=== PATIENT | female | born 1985 | race Two or more races ===

== ENCOUNTER → 2017-11-23 | Outpatient (CLI) | payer OTHER ==
[~2017-11-23] VITALS: Ht 152.4 cm; Wt 140.6 kg
[~2017-11-23] MED LIST: GLUCOPHAGE XR500 MG PO; METFORMIN HCL1000 MG; SYNTHROID150 MCG; SYNTHROID175 MCG PO
== END | disposition home or self-care (01) ==
LOC: PPHC 10:44
DX: M54.2 Cervicalgia (principal); Z76.0 Encounter for issue of repeat prescription

== ENCOUNTER 2018-09-06 10:44 | Outpatient (CLI) | payer OTHER | END 2018-09-06 10:50 | disposition home or self-care (01) | LOC: LAB 10:44 | DX: J06.9 Acute upper respiratory infection, unspecified (principal); J09.X2 Influenza due to identified novel influenza A virus with other respiratory manifestations; J11.1 Influenza due to unidentified influenza virus with other respiratory manifestations ==

== ENCOUNTER 2018-09-08 18:02 | Outpatient (CLI) | payer OTHER | END 2018-09-08 18:10 | disposition home or self-care (01) | LOC: LAB 18:02 | DX: J20.8 Acute bronchitis due to other specified organisms (principal) ==

== ENCOUNTER 2019-01-07 19:03 | Outpatient (CLI) | payer OTHER | END 2019-01-07 19:29 | disposition home or self-care (01) | LOC: RAD 19:03 | DX: J20.8 Acute bronchitis due to other specified organisms (principal) ==

== ENCOUNTER 2019-04-27 16:01 | Emergency (ER) | payer OTHER ==
[~2019-04-27] VITALS: Ht 170.2 cm; Wt 113.4 kg
== END 2019-04-27 18:17 | disposition home or self-care (01) ==
LOC: ER 16:01
DX: J06.9 Acute upper respiratory infection, unspecified (principal)

== ENCOUNTER 2019-08-21 11:43 | Outpatient (CLI) | payer OTHER | END 2019-08-21 11:51 | disposition home or self-care (01) | LOC: LAB 11:43 | DX: J11.1 Influenza due to unidentified influenza virus with other respiratory manifestations (principal) ==

== ENCOUNTER 2020-05-20 16:40 | Outpatient (CLI) | payer OTHER | END 2020-05-20 16:54 | disposition home or self-care (01) | LOC: RAD 16:40 | PROVIDERS: ATTEND General Practice | DX: J11.1 Influenza due to unidentified influenza virus with other respiratory manifestations (principal); R05 Cough ==

== ENCOUNTER 2020-05-27 09:39 | Outpatient (CLI) | payer OTHER | END 2020-05-27 09:50 | disposition home or self-care (01) | LOC: TOM 09:39 | DX: J18.8 Other pneumonia, unspecified organism (principal); R06.09 Other forms of dyspnea ==

== ENCOUNTER → 2024-08-25 | Outpatient (CLI) | payer OTHER | END | disposition home or self-care (01) | LOC: PRENATAL 10:29 | PROVIDERS: ATTEND Obstetrics & Gynecology Maternal & Fetal Medicine | DX: O26.849 Uterine size-date discrepancy, unspecified trimester (principal); O28.1 Abnormal biochemical finding on antenatal screening of mother; O09.529 Supervision of elderly multigravida, unspecified trimester; O24.319 Unspecified pre-existing diabetes mellitus in pregnancy, unspecified trimester; O99.280 Endocrine, nutritional and metabolic diseases complicating pregnancy, unspecified trimester; O34.40 Maternal care for other abnormalities of cervix, unspecified trimester; Z3A.16 16 weeks gestation of pregnancy ==

== ENCOUNTER 2024-08-31 07:49 | Outpatient (CLI) | payer OTHER | END 2024-08-31 08:45 | disposition home or self-care (01) | LOC: LAB 07:49 | PROVIDERS: ATTEND Obstetrics & Gynecology Maternal & Fetal Medicine | DX: Z00.00 Encounter for general adult medical examination without abnormal findings (principal) ==

== ENCOUNTER 2024-08-31 08:05 | Outpatient (CLI) | payer OTHER | END 2024-08-31 08:06 | disposition home or self-care (01) | LOC: PRENATAL 08:05 | PROVIDERS: ATTEND Obstetrics & Gynecology Maternal & Fetal Medicine | DX: O09.529 Supervision of elderly multigravida, unspecified trimester (principal); O28.1 Abnormal biochemical finding on antenatal screening of mother; O24.319 Unspecified pre-existing diabetes mellitus in pregnancy, unspecified trimester; O99.280 Endocrine, nutritional and metabolic diseases complicating pregnancy, unspecified trimester; O34.40 Maternal care for other abnormalities of cervix, unspecified trimester; O44.00 Complete placenta previa NOS or without hemorrhage, unspecified trimester; Z3A.19 19 weeks gestation of pregnancy ==